=== PATIENT | male | born 1995 | race Caucasian/White ===

== ENCOUNTER 2019-07-14 05:47 | Emergency (ER) | payer MEDICAID ==
[~2019-07-14] VITALS: Ht 172.7 cm; Wt 100.0 kg
[2019-07-14 06:08] VITALS: BP 152/81
== END 2019-07-14 06:38 | disposition home or self-care (01) ==
LOC: ER 05:47
DX: R07.89 Other chest pain (principal)
CPT/HCPCS: 93005; 99283

== ENCOUNTER 2020-06-06 08:35 | Emergency (ER) | payer MEDICAID ==
[~2020-06-06] VITALS: Ht 172.7 cm; Wt 124.4 kg
[2020-06-06] MEDS ORDERED: ketorolac trometh. 30mg/ml inj. IV ONE (09:55)
[2020-06-06] MEDS ORDERED: proCHLORperazine 10 MG/2 ml inj IV ONE (09:55)
[2020-06-06] MEDS ORDERED: SUMAtriptan succ. 6 MG/0.5ml vial SQ ONE (09:55)
[2020-06-06] MEDS ORDERED: normal saline 1000ML IV soln IVB ONE (09:55)
[2020-06-06 10:30] VITALS: BP 137/93
== END 2020-06-06 11:36 | disposition home or self-care (01) ==
LOC: ER 08:36
DX: S00.93XA Contusion of unspecified part of head, initial encounter (principal); G43.909 Migraine, unspecified, not intractable, without status migrainosus; X58.XXXA Exposure to other specified factors, initial encounter; Y93.89 Activity, other specified; Y92.89 Other specified places as the place of occurrence of the external cause; Y99.8 Other external cause status
CPT/HCPCS: 70450; 72125; 96361; 96372; 96374; 96375; 99285; J0780; J1885; J7030; J3030

== ENCOUNTER 2021-03-02 05:47 | Emergency (ER) | payer MEDICAID ==
[~2021-03-02] VITALS: Ht 172.7 cm; Wt 104.5 kg
--- NOTE | 2021-03-02 07:52 | NUR ---
dr ledesma at bedside.
[2021-03-02] MEDS ORDERED: pseudoephedrine 30mg tablet PO ONE (08:00)
[2021-03-02] MEDS ORDERED: normal saline 1000ML IV soln IVB ONE (08:00)
[2021-03-02 08:43] LABS: BASOPHILS % (AUTO) 0.4 % (0-1); EOSINOPHILS # (AUTO) 0.1 X10'3 (0-0.9); EOSINOPHILS % (AUTO) 0.6 % (0-6); HEMOGLOBIN 14.9 g/dl (14.0-17.9); LYMPHOCYTES # (AUTO) 1.2 X10'3 (1.1-4.8); LYMPHOCYTES % (AUTO) 11.3 % (21-51); MEAN CORPUSCULAR HEMOGLOBIN 29.3 PG (27.0-31.0); MEAN CORPUSCULAR HGB CONC 33.9 g/dL (33.0-36.5); MEAN CORPUSCULAR VOLUME 86.5 FL (78-98); MEAN PLATELET VOLUME 8.2 FL (7.4-10.4); MONOCYTES # (AUTO) 0.6 X10'3 (0-0.9); MONOCYTES % (AUTO) 5.6 % (2-12); NEUTROPHILS # (AUTO) 8.8 X10'3 (1.8-7.7); NEUTROPHILS % (AUTO) 82.1 % (42-75); PLATELET COUNT 286 X10'3 (140-440); RED BLOOD COUNT 5.09 X10'6 (4.70-6.10); RED CELL DISTRIBUTION WIDTH 13.5 % (11.5-14.5); WHITE BLOOD COUNT 10.8 X10'3 (4.5-11.0)
[2021-03-02 08:57] LABS: ALANINE AMINOTRANSFERASE 175 U/L (12-78); ALBUMIN 4.1 G/DL (3.4-5.0); ALKALINE PHOSPHATASE 90 IU/L (46-116); ANION GAP 11 (8-16); ASPARTATE AMINO TRANSFERASE 96 U/L (10-37); BILIRUBIN,TOTAL 0.5 MG/DL (0.1-1.0); BLOOD UREA NITROGEN 10 MG/DL (7-18); BUN/CREATININE RATIO 14.3 (5.4-32.0); CALCIUM 9.1 MG/DL (8.5-10.1); CHLORIDE 104 MMOL/L (99-107); GLUCOSE 206 MG/DL (70-104); POTASSIUM 4.3 MMOL/L (3.5-5.1); SODIUM 139 MMOL/L (135-145); TOTAL PROTEIN 8.3 G/DL (6.4-8.2); eGFR > 90 ML/MIN
[2021-03-02 09:30] VITALS: BP 128/73
== END 2021-03-02 09:54 | disposition home or self-care (01) ==
LOC: ER 05:48
DX: J06.9 Acute upper respiratory infection, unspecified (principal); Z20.822 Contact with and (suspected) exposure to COVID-19; R05 Cough; K52.9 Noninfective gastroenteritis and colitis, unspecified; R09.89 Other specified symptoms and signs involving the circulatory and respiratory systems; R11.0 Nausea; Z72.89 Other problems related to lifestyle; Z72.0 Tobacco use
CPT/HCPCS: 36415; 71045; 80053; 85025; 87635; 96360; 99284; C9803; J7030